=== PATIENT | male | born 1950 | race Caucasian/White ===

== ENCOUNTER 2019-07-18 17:07 | Inpatient (IN) | payer MEDICARE, OTHER ==
[~2019-07-18] VITALS: Ht 182.9 cm; Wt 127.0 kg
[2019-07-18 18:06] LABS: BASOPHILS # (AUTO) 0.1 X10'3 (0-0.2); EOSINOPHILS # (AUTO) 0.1 X10'3 (0-0.9); HEMOGLOBIN 14.4 g/dl (14.0-17.9); LYMPHOCYTES # (AUTO) 1.1 X10'3 (1.1-4.8); LYMPHOCYTES % (AUTO) 16.3 % (21-51); MEAN CORPUSCULAR HEMOGLOBIN 32.1 PG (27.0-31.0); MEAN CORPUSCULAR HGB CONC 33.6 g/dL (33.0-36.5); MEAN CORPUSCULAR VOLUME 95.6 FL (78-98); MEAN PLATELET VOLUME 9.2 FL (7.4-10.4); MONOCYTES # (AUTO) 0.6 X10'3 (0-0.9); MONOCYTES % (AUTO) 9.2 % (2-12); NEUTROPHILS % (AUTO) 72.5 % (42-75); PLATELET COUNT 168 X10'3 (140-440); RED CELL DISTRIBUTION WIDTH 14.1 % (11.5-14.5)
[2019-07-18 18:30] LABS: ALANINE AMINOTRANSFERASE 54 U/L (12-78); ALBUMIN 3.6 G/DL (3.4-5.0); ALKALINE PHOSPHATASE 129 IU/L (46-116); ANION GAP 9 (8-16); ASPARTATE AMINO TRANSFERASE 33 U/L (10-37); BLOOD UREA NITROGEN 19 MG/DL (7-18); BUN/CREATININE RATIO 16.5 (5.4-32.0); CALCIUM 8.6 MG/DL (8.5-10.1); CHLORIDE 105 MMOL/L (99-107); CREATININE 1.15 MG/DL (0.60-1.10); GLUCOSE 149 MG/DL (70-104); POTASSIUM 4.2 MMOL/L (3.5-5.1); SODIUM 139 MMOL/L (135-145); TOTAL CARBON DIOXIDE 25.3 MMOL/L (24-32); TOTAL PROTEIN 7.2 G/DL (6.4-8.2); eGFR 63 ML/MIN
[2019-07-18] MEDS ORDERED: normal saline 1000ML IV soln IVB ONE (18:45)
[2019-07-18] MEDS ORDERED: diltiazem 5mg/ml 5ml inj. IV ONE ×3 (18:55→19:45)
[2019-07-18] MEDS ORDERED: aspirin 81mg tab.chew PO ONE (18:55)
[2019-07-18 18:59] LABS: PARTIAL THROMBOPLASTIN TIME 28 SECONDS (22-32)
[2019-07-18] MEDS ORDERED: diltiazem-D5W 125mg/125ml 125 ML IV PRN (19:45)
[2019-07-18] MEDS ORDERED: diltiazem-NS 100mg/100ml 100 ML IV PRN (19:48)
[2019-07-18 20:00] LABS: ETHANOL < 0.010 GM/DL (0.0-0.010)
--- NOTE | 2019-07-18 20:02 | NUR ---
Spoke with MD Everardo re current VS and pending Diltiazem drip ordered. Per , goal is to have pt's HR below 90/min. Current HR between 100 - 115 and SBP 117. Per , give ordered Diltiazem 10mg IV now and continue to hold off on Diltiazem drip.
[2019-07-18] MEDS ORDERED: NO HOME MEDS (20:03)
[2019-07-18 20:43] LABS: URINE AMPHETAMINE SCREEN NEGATIVE (Neg); URINE BARBITUATE SCREEN NEGATIVE (Neg); URINE BENZODIAZEPINES SCREEN NEGATIVE (Neg); URINE CANNABINOID SCREEN NEGATIVE (Neg); URINE COCAINE SCREEN NEGATIVE (Neg); URINE METHADONE SCREEN NEGATIVE (Neg); URINE OPIATE SCREEN NEGATIVE (Neg); URINE PHENCYCLIDINE SCREEN NEGATIVE (Neg)
[2019-07-18] MEDS: diltiazem-NS 100mg/100ml 100 ML IV PRN ×2 (21:40→22:19)
--- NOTE | 2019-07-18 21:41 | NUR ---
Spoke with MD regarding patient's current VS with HR at 130-140. Per MD, start Cardizem gtt now at 5mg/hr.
--- NOTE | 2019-07-18 22:19 | NUR ---
Notified MD Mcgee of pt's 148 HR. Cardizem titrated to 10ml/hr per MD order.
[2019-07-18] MEDS ORDERED: mag hydrox/Alum hydrox/simeth 30ml oral suspension PO PRN (23:30)
[2019-07-18] MEDS ORDERED: ondansetron/PF 4mg/2ml inj IV PRN (23:30)
[2019-07-18] MEDS ORDERED: acetaminophen 325mg tablet PO PRN (23:30)
[2019-07-18] MEDS ORDERED: magnesium hydroxide 30ml (MOM) UD suspension PO PRN (23:30)
--- NOTE | 2019-07-18 23:52 | NUR ---
Patient in room ED 14. I have received report from ROSEMARY CRANE and had the opportunity to ask questions and assume patient care.
[2019-07-18 23:58] LABS: D-DIMER 2.44 MG/L FEU (0-0.50)
[2019-07-19] VITALS (16 sets, daily range): BP systolic 111–138; BP diastolic 66–83
[2019-07-19 05:28] LABS: BASOPHILS # (AUTO) 0.1 X10'3 (0-0.2); BASOPHILS % (AUTO) 0.8 % (0-1); EOSINOPHILS # (AUTO) 0.1 X10'3 (0-0.9); EOSINOPHILS % (AUTO) 1.1 % (0-6); HEMATOCRIT 40.1 % (42.0-52.0); HEMOGLOBIN 13.7 g/dl (14.0-17.9); LYMPHOCYTES # (AUTO) 1.4 X10'3 (1.1-4.8); LYMPHOCYTES % (AUTO) 20.7 % (21-51); MEAN CORPUSCULAR HEMOGLOBIN 32.8 PG (27.0-31.0); MEAN CORPUSCULAR HGB CONC 34.1 g/dL (33.0-36.5); MEAN CORPUSCULAR VOLUME 96.2 FL (78-98); MEAN PLATELET VOLUME 9.3 FL (7.4-10.4); MONOCYTES # (AUTO) 0.7 X10'3 (0-0.9); MONOCYTES % (AUTO) 10.9 % (2-12); NEUTROPHILS # (AUTO) 4.4 X10'3 (1.8-7.7); NEUTROPHILS % (AUTO) 66.5 % (42-75); PLATELET COUNT 165 X10'3 (140-440); RED BLOOD COUNT 4.17 X10'6 (4.70-6.10); RED CELL DISTRIBUTION WIDTH 14.2 % (11.5-14.5); WHITE BLOOD COUNT 6.6 X10'3 (4.5-11.0)
--- NOTE | 2019-07-19 06:00 | NUR ---
Problems reprioritized. Patient report given, questions answered & plan of care reviewed with MARY CRANE.
[2019-07-19 06:16] LABS: ALANINE AMINOTRANSFERASE 46 U/L (12-78); ALBUMIN 3.2 G/DL (3.4-5.0); ALKALINE PHOSPHATASE 95 IU/L (46-116); ANION GAP 9 (8-16); ASPARTATE AMINO TRANSFERASE 26 U/L (10-37); BILIRUBIN,TOTAL 1.1 MG/DL (0.1-1.0); BLOOD UREA NITROGEN 19 MG/DL (7-18); BUN/CREATININE RATIO 18.1 (5.4-32.0); CALCIUM 8.5 MG/DL (8.5-10.1); CHLORIDE 108 MMOL/L (99-107); CREATININE 1.05 MG/DL (0.60-1.10); GLUCOSE 144 MG/DL (70-104); POTASSIUM 4.1 MMOL/L (3.5-5.1); SODIUM 140 MMOL/L (135-145); TOTAL CARBON DIOXIDE 22.9 MMOL/L (24-32); TOTAL PROTEIN 6.5 G/DL (6.4-8.2); eGFR 70 ML/MIN
[2019-07-19 06:18] LABS: CHOL/HDL RATIO 2.7 (0.00-4.99); CHOLESTEROL 113 MG/DL (0-200); HDL CHOLESTEROL 42 MG/DL (35-60); LDL CHOLESTEROL 64 MG/DL (50-100); TRIGLYCERIDES 59 MG/DL (20-135)
[2019-07-19] MEDS: diltiazem-NS 100mg/100ml 100 ML IV PRN ×2 (06:52→16:55)
--- NOTE | 2019-07-19 07:18 | NUR ---
Patient in room MED 314. I have received report from niecy Solares and had the opportunity to ask questions and assume patient care.
[2019-07-19 07:57] LABS: MAGNESIUM 2.1 MG/DL (1.5-2.4)
[2019-07-19] MEDS: enoxaparin 60mg/0.6ml syringe SUBCUT SCH ×2 (10:00→21:30)
[2019-07-19] MEDS ORDERED: furosemide 40mg/4ml inj IV ONE (11:40)
--- NOTE | 2019-07-19 13:14 | NUR ---
ASKED DR. CHAUDHARI TO CONTACT RESERVATIONS CLERK "RE: JONAS IN 314. CAN YOU PLEASE CALL DR. ARTEAGA OR RESERVATIONS CLERK, VEE RAY HAS GONE FOR THE DAY. THANK YOU, REGINALD YOUNGBLOOD [phone]"
--- NOTE | 2019-07-19 18:00 | NUR ---
Problems reprioritized. Patient report given, questions answered & plan of care reviewed with niecy Todd.
[2019-07-19] MEDS: normal saline 1000ml 1,000 ML IV SCH (21:30)
[2019-07-20] VITALS (7 sets, daily range): BP systolic 106–131; BP diastolic 51–98
[2019-07-20] MEDS: diltiazem-NS 100mg/100ml 100 ML IV PRN (01:13)
--- NOTE | 2019-07-20 06:28 | NUR ---
Problems reprioritized. Patient report given, questions answered & plan of care reviewed with Megha CRANE .
[2019-07-20 06:50] LABS: BASOPHILS # (AUTO) 0.1 X10'3 (0-0.2); BASOPHILS % (AUTO) 0.8 % (0-1); EOSINOPHILS # (AUTO) 0.1 X10'3 (0-0.9); HEMATOCRIT 41.2 % (42.0-52.0); HEMOGLOBIN 13.8 g/dl (14.0-17.9); LYMPHOCYTES # (AUTO) 1.2 X10'3 (1.1-4.8); LYMPHOCYTES % (AUTO) 17.6 % (21-51); MEAN CORPUSCULAR HEMOGLOBIN 32.2 PG (27.0-31.0); MEAN CORPUSCULAR HGB CONC 33.6 g/dL (33.0-36.5); MEAN CORPUSCULAR VOLUME 95.8 FL (78-98); MEAN PLATELET VOLUME 10.1 FL (7.4-10.4); MONOCYTES # (AUTO) 0.9 X10'3 (0-0.9); MONOCYTES % (AUTO) 12.9 % (2-12); NEUTROPHILS # (AUTO) 4.7 X10'3 (1.8-7.7); NEUTROPHILS % (AUTO) 67.7 % (42-75); PLATELET COUNT 174 X10'3 (140-440); RED CELL DISTRIBUTION WIDTH 14.1 % (11.5-14.5)
--- NOTE | 2019-07-20 06:52 | NUR ---
Patient in room MED 314. I have received report from niecy Todd and had the opportunity to ask questions and assume patient care.
[2019-07-20 07:09] LABS: ALANINE AMINOTRANSFERASE 44 U/L (12-78); ALBUMIN 3.4 G/DL (3.4-5.0); ALKALINE PHOSPHATASE 88 IU/L (46-116); ANION GAP 10 (8-16); ASPARTATE AMINO TRANSFERASE 27 U/L (10-37); BILIRUBIN,TOTAL 1.3 MG/DL (0.1-1.0); BLOOD UREA NITROGEN 18 MG/DL (7-18); CALCIUM 8.6 MG/DL (8.5-10.1); CHLORIDE 106 MMOL/L (99-107); GLUCOSE 111 MG/DL (70-104); POTASSIUM 3.9 MMOL/L (3.5-5.1); SODIUM 141 MMOL/L (135-145); TOTAL CARBON DIOXIDE 25.1 MMOL/L (24-32); TOTAL PROTEIN 6.8 G/DL (6.4-8.2); eGFR 74 ML/MIN
[2019-07-20] MEDS: carvedilol 6.25mg tablet PO SCH ×2 (08:05→20:05)
[2019-07-20] MEDS: amiodarone 200mg tablet PO SCH ×2 (08:05→20:07)
[2019-07-20] MEDS: enoxaparin 60mg/0.6ml syringe SUBCUT SCH (08:15)
--- NOTE | 2019-07-20 18:21 | NUR ---
Patient in room MED 314. I have received report from Megha CRANE and had the opportunity to ask questions and assume patient care.
[2019-07-20] MEDS: apixaban 5mg tablet PO SCH (20:06)
[2019-07-20] MEDS: lisinopril 2.5mg tablet PO SCH (20:42)
[2019-07-20] MEDS: normal saline 1000ml 1,000 ML IV SCH (23:26)
[2019-07-21 02:00] VITALS: BP 106/75
[2019-07-21 02:55] LABS: BASOPHILS % (AUTO) 0.4 % (0-1); EOSINOPHILS # (AUTO) 0.1 X10'3 (0-0.9); EOSINOPHILS % (AUTO) 1.2 % (0-6); HEMATOCRIT 40.2 % (42.0-52.0); HEMOGLOBIN 13.6 g/dl (14.0-17.9); LYMPHOCYTES # (AUTO) 1.2 X10'3 (1.1-4.8); MEAN CORPUSCULAR HEMOGLOBIN 32.1 PG (27.0-31.0); MEAN CORPUSCULAR HGB CONC 33.7 g/dL (33.0-36.5); MEAN CORPUSCULAR VOLUME 95.4 FL (78-98); MEAN PLATELET VOLUME 9.4 FL (7.4-10.4); MONOCYTES # (AUTO) 0.7 X10'3 (0-0.9); MONOCYTES % (AUTO) 10.7 % (2-12); NEUTROPHILS # (AUTO) 4.8 X10'3 (1.8-7.7); NEUTROPHILS % (AUTO) 70.7 % (42-75); PLATELET COUNT 154 X10'3 (140-440); RED BLOOD COUNT 4.22 X10'6 (4.70-6.10); WHITE BLOOD COUNT 6.8 X10'3 (4.5-11.0)
[2019-07-21 03:18] LABS: ALANINE AMINOTRANSFERASE 42 U/L (12-78); ALBUMIN 3.1 G/DL (3.4-5.0); ALKALINE PHOSPHATASE 83 IU/L (46-116); ANION GAP 10 (8-16); ASPARTATE AMINO TRANSFERASE 28 U/L (10-37); BILIRUBIN,TOTAL 1.2 MG/DL (0.1-1.0); BLOOD UREA NITROGEN 21 MG/DL (7-18); BUN/CREATININE RATIO 20.2 (5.4-32.0); CALCIUM 8.6 MG/DL (8.5-10.1); CHLORIDE 106 MMOL/L (99-107); CREATININE 1.04 MG/DL (0.60-1.10); GLUCOSE 121 MG/DL (70-104); POTASSIUM 4.4 MMOL/L (3.5-5.1); SODIUM 138 MMOL/L (135-145); TOTAL CARBON DIOXIDE 22.5 MMOL/L (24-32); TOTAL PROTEIN 6.2 G/DL (6.4-8.2); eGFR 71 ML/MIN
[2019-07-21 06:00] VITALS: BP 113/79
--- NOTE | 2019-07-21 06:22 | NUR ---
Problems reprioritized. Patient report given, questions answered & plan of care reviewed with Marleni CRANE.
[2019-07-21] MEDS: apixaban 5mg tablet PO SCH ×2 (07:29→21:15)
[2019-07-21] MEDS: amiodarone 200mg tablet PO SCH ×2 (07:29→21:14)
[2019-07-21] MEDS: carvedilol 6.25mg tablet PO SCH ×2 (07:29→21:15)
[2019-07-21] MEDS: furosemide 20 MG/2 ML vial IV SCH ×3 (08:00→21:13)
[2019-07-21] MEDS: potassium Cl 20 mEq SR tablet PO SCH ×2 (08:25→17:30)
[2019-07-21 11:00] VITALS: BP 102/68
[2019-07-21] MEDS ORDERED: amiodarone 150mg/dext, iso-os 100 ML IV ONE (11:05)
[2019-07-21 15:00] VITALS: BP 90/58
--- NOTE | 2019-07-21 15:00 | NUR ---
PT SWEATY, COMPLAINING OF "NOT FEELING WELL" BLOOD SUGAR PRUNHFV=234 BP 90/58 HR 94 SPO2 94% ON ROOM AIR ZOFRAN GIVEN FOR C/O NAUSEA PT DENIES PAIN AND DENIES CHEST PAIN/DISCOMFORT WILL CONTINUE TO MONITOR.
--- NOTE | 2019-07-21 16:30 | NUR ---
PT REPORTS HE FEELS MUCH BETTER FROM PREVIOUS EPISODE. WILL CONTINUE TO MONITOR.
[2019-07-21 18:00] VITALS: BP 99/59
--- NOTE | 2019-07-21 18:58 | NUR ---
Patient in room MED 314. I have received report from Monty CRANE and had the opportunity to ask questions and assume patient care.
[2019-07-21] MEDS: lisinopril 2.5mg tablet PO SCH (21:16)
[2019-07-21 22:00] VITALS: BP 119/88
[2019-07-22 02:00] VITALS: BP 116/79
[2019-07-22 06:00] VITALS: BP 118/91
[2019-07-22 06:21] LABS: BASOPHILS % (AUTO) 0.3 % (0-1); EOSINOPHILS % (AUTO) 0.1 % (0-6); HEMATOCRIT 43.4 % (42.0-52.0); HEMOGLOBIN 14.4 g/dl (14.0-17.9); LYMPHOCYTES # (AUTO) 1.3 X10'3 (1.1-4.8); LYMPHOCYTES % (AUTO) 14.2 % (21-51); MEAN CORPUSCULAR HEMOGLOBIN 32.2 PG (27.0-31.0); MEAN CORPUSCULAR HGB CONC 33.2 g/dL (33.0-36.5); MEAN PLATELET VOLUME 10.8 FL (7.4-10.4); MONOCYTES # (AUTO) 0.8 X10'3 (0-0.9); NEUTROPHILS # (AUTO) 6.7 X10'3 (1.8-7.7); NEUTROPHILS % (AUTO) 76.4 % (42-75); PLATELET COUNT 146 X10'3 (140-440); RED BLOOD COUNT 4.47 X10'6 (4.70-6.10); WHITE BLOOD COUNT 8.8 X10'3 (4.5-11.0)
--- NOTE | 2019-07-22 06:26 | NUR ---
Problems reprioritized. Patient report given, questions answered & plan of care reviewed with Silvia Luna.
--- NOTE | 2019-07-22 06:29 | NUR ---
Patient in room MED 314. I have received report from ROYCE Perez and had the opportunity to ask questions and assume patient care.
[2019-07-22 06:47] LABS: ALANINE AMINOTRANSFERASE 325 U/L (12-78); ALBUMIN 3.4 G/DL (3.4-5.0); ALKALINE PHOSPHATASE 97 IU/L (46-116); ANION GAP 10 (8-16); ASPARTATE AMINO TRANSFERASE 368 U/L (10-37); BILIRUBIN,TOTAL 1.2 MG/DL (0.1-1.0); BLOOD UREA NITROGEN 35 MG/DL (7-18); BUN/CREATININE RATIO 18.1 (5.4-32.0); CHLORIDE 103 MMOL/L (99-107); CREATININE 1.93 MG/DL (0.60-1.10); GLUCOSE 127 MG/DL (70-104); POTASSIUM 5.1 MMOL/L (3.5-5.1); SODIUM 138 MMOL/L (135-145); TOTAL CARBON DIOXIDE 25.4 MMOL/L (24-32); TOTAL PROTEIN 6.7 G/DL (6.4-8.2); eGFR 35 ML/MIN
[2019-07-22 07:55] LABS: LARGE PLATELETS FEW; PLATELET ESTIMATE NORMAL
[2019-07-22] MEDS: amiodarone 200mg tablet PO SCH (08:05)
[2019-07-22] MEDS: apixaban 5mg tablet PO SCH (08:05)
[2019-07-22] MEDS: furosemide 20 MG/2 ML vial IV SCH (08:05)
[2019-07-22] MEDS: carvedilol 6.25mg tablet PO SCH (08:06)
[2019-07-22] MEDS: potassium Cl 20 mEq SR tablet PO SCH (08:30)
[2019-07-22 11:00] VITALS: BP 84/54
[2019-07-22 15:00] VITALS: BP 95/66
[2019-07-22] MEDS ORDERED: AMIO200T61 PO (16:48)
[2019-07-22] MEDS ORDERED: APIX5TAB3 PO (16:48)
[2019-07-22] MEDS ORDERED: CARV6.253 PO (16:48)
[2019-07-22] MEDS ORDERED: FURO-150 PO (16:48)
[2019-07-22] MEDS ORDERED: LISI2.5T2 PO (16:48)
--- NOTE | 2019-07-22 19:05 | NUR ---
pt. discharged from facility at 1835. pt. was wheeled down to private vehicle accompanied by staff and his . pt. signed and understood all paperwork. pt. understands that he has a f/u appointment with Dr. Lowery scheduled for him but he has to call insurance to work out the approval for the visit. pt. IV was d/c intact. pt. meds were called into [facility] on [facility] by [place]. pt. left with all belongings.
[2019-07-22] MEDS ORDERED: amiodarone 200mg tablet PO SCH (20:00)
--- NOTE | 2019-07-23 15:33 | NUR ---
Case Management DC follow up: spoke to pt via telephone. pt reports he was happy to be home and had a good night's sleep. pt states he took all his medications w/breakfast, it was hard, and hard to adjust to. Life changing. Stated he felt a little dizzy, but the feeling passed. Went over some side effects r/t medications, what to look for. pt understands the medications and why prescribed. Pt getting documents together so that he can bring the info to hospital as soon as possible to get started on [employer] application for [employer] & establishing PCP w/[facility] before follow up jace w/Dr Knight 08/05/2019. All needs met and questions answered at hospital. pt stated he appreciates everything that the staff/doctors had done for him. The care was top notch. He cannot thank everyone enough. Very happy for all the help. Advised pt about position changes et al orthostatic symptoms supine/sitting/standing. pt in agreement to make sure he has something to steady himself and adjust from lying to standing. Advised pt that if he experienced concerning symptoms to come back to the hospital. pt did not have further questions.
== END 2019-07-22 18:35 | disposition home or self-care (01) | DRG 308 ==
LOC: ER 17:08 → ED HOLD 23:32 → MED 3N 07-19 00:05
PROVIDERS: ADMIT Internal Medicine; ATTEND Hospitalist
DX: I48.92 Unspecified atrial flutter (principal); I50.23 Acute on chronic systolic (congestive) heart failure; I11.0 Hypertensive heart disease with heart failure; I48.91 Unspecified atrial fibrillation; J40 Bronchitis, not specified as acute or chronic; Z79.01 Long term (current) use of anticoagulants; Z79.899 Other long term (current) drug therapy
CPT/HCPCS: 36415; 71045; 80053; 80061; 80305; 80320; 82948; 83036; 83605; 83735; 83880; 84145; 84443; 84484; 85025; 85379; 85610; 85730; 87040; 87081; 87502; 87503; 93005; 93306; 96374; 96376; 99291; 99292; G0378; J0282; J1650; J1940; J2405; J3490; J7030

== ENCOUNTER 2021-01-18 15:43 | Emergency (ER) | payer MEDICARE, MEDICAID ==
[~2021-01-18 15:43] MED LIST: AMIO200T61 PO; APIX5TAB3 PO; CARV6.253 PO; FURO-150 PO; LISI2.5T2 PO
[2021-01-18 17:11] LABS: BASOPHILS % (AUTO) 0.2 % (0-1); EOSINOPHILS % (AUTO) 0.1 % (0-6); HEMOGLOBIN 15.1 g/dl (14.0-17.9); MEAN CORPUSCULAR HEMOGLOBIN 32.6 PG (27.0-31.0); MEAN CORPUSCULAR HGB CONC 33.5 g/dL (33.0-36.5); MEAN CORPUSCULAR VOLUME 97.3 FL (78-98); MEAN PLATELET VOLUME 9.2 FL (7.4-10.4); MONOCYTES # (AUTO) 1.5 X10'3 (0-0.9); MONOCYTES % (AUTO) 10.4 % (2-12); NEUTROPHILS % (AUTO) 82.3 % (42-75); PLATELET COUNT 165 X10'3 (140-440); RED BLOOD COUNT 4.63 X10'6 (4.70-6.10); RED CELL DISTRIBUTION WIDTH 13.6 % (11.5-14.5); WHITE BLOOD COUNT 14.6 X10'3 (4.5-11.0)
[2021-01-18 17:29] LABS: ALANINE AMINOTRANSFERASE 27 U/L (12-78); ALBUMIN 3.2 G/DL (3.4-5.0); ALBUMIN/GLOBULIN RATIO 0.7 (1.1-1.5); ALKALINE PHOSPHATASE 69 IU/L (46-116); ANION GAP 11 (8-16); ASPARTATE AMINO TRANSFERASE 26 U/L (10-37); BLOOD UREA NITROGEN 22 MG/DL (7-18); BUN/CREATININE RATIO 20.8 (5.4-32.0); CALCIUM 9.1 MG/DL (8.5-10.1); CHLORIDE 96 MMOL/L (99-107); CREATININE 1.06 MG/DL (0.60-1.10); GLUCOSE 109 MG/DL (70-104); POTASSIUM 3.6 MMOL/L (3.5-5.1); SODIUM 132 MMOL/L (135-145); TOTAL CARBON DIOXIDE 24.9 MMOL/L (24-32); TOTAL PROTEIN 7.8 G/DL (6.4-8.2); eGFR 69 ML/MIN
--- NOTE | 2021-01-18 18:43 | NUR ---
Evgeny [phone] from pace report: shocked for Afib with RVR, tried to paced x2 but pace makern shocked today JAYLA Rodríguez notified
[2021-01-18 18:45] LABS: MAGNESIUM 2.2 MG/DL (1.5-2.4)
[2021-01-18 19:26] VITALS: BP 111/63
== END 2021-01-18 19:28 | disposition home or self-care (01) ==
LOC: ER 15:44
DX: I48.91 Unspecified atrial fibrillation (principal); R11.0 Nausea; R06.02 Shortness of breath; I10 Essential (primary) hypertension; Z79.899 Other long term (current) drug therapy
CPT/HCPCS: 36415; 71045; 80053; 83735; 83880; 84484; 85025; 93005; 99285